=== PATIENT | female | born 1990 | race Caucasian/White ===

== ENCOUNTER → 2016-07-20 | Outpatient (CLI) | payer OTHER ==
[2016-07-20 12:54] LABS: BASO % 0.6 % (0.0-1.0); EOS # 0.1 K/mm3 (0.0-0.50); EOS % 1.6 % (0.0-3.0); LARGE UNSTAINED CELL # 0.1 K/mm3 (0.0-0.4); LARGE UNSTAINED CELL % 1.7 % (0.0-4.0); LYMPH % 34.9 % (24.0-44.0); MEAN CORPUSCULAR HEMOGLOBIN 29.2 pg (27.0-33.0); MEAN CORPUSCULAR HGB CONC 32.9 g/dl (32.0-36.5); MEAN CORPUSCULAR VOLUME 88.7 fl (80.0-96.0); MONO # 0.4 K/mm3 (0.0-0.8); MONO % 7.6 % (0.0-5.0); NEUTROPHILS # 2.9 K/mm3 (1.8-7.7); NEUTROPHILS % 53.6 % (36.0-66.0); PLATELET COUNT, AUTOMATED 309 k/mm3 (150-450); RED CELL DISTRIBUTION WIDTH 11.9 % (11.5-14.5); WHITE BLOOD COUNT 5.5 K/mm3 (4.0-10.0)
[2016-07-20 13:19] LABS: HBsAg Prenatal NEGATIVE (NEGATIVE)
[2016-07-20 14:46] LABS: CONTROL LINE INT CTR LINE PRESENT; HIV SCRN NEGATIVE (NEGATIVE); HIV SCRN1 NEGATIVE (NEGATIVE)
== END ==
LOC: M WUC 07-19 12:30
PROVIDERS: ATTEND Advanced Practice Midwife
DX: Z34.81 Encounter for supervision of other normal pregnancy, first trimester (principal); Z36 Encounter for antenatal screening of mother; Z3A.00 Weeks of gestation of pregnancy not specified

== ENCOUNTER → 2016-11-07 | Outpatient (CLI) | payer OTHER ==
--- NOTE | 2016-11-07 16:27 | REP ---
Clinical: Anatomical evaluation. Comparison: None . Findings: Examination demonstrates a single live intrauterine in breech presentation. motion is identified by technologist. Placenta is noted anteriorly and grade zero without evidence for placenta previa or abruption. Amniotic fluid volume is normal. Cervix measures 4.4 cm in length and appears closed. No evidence for nuchal cord. Gestational age by LMP 20 weeks 4 days with DESMOND 03/23/2017 . Gestational age by current measurements 20 weeks 2 days with DESMOND 03/25/2017 . FHR equals 157 beats per minute. BPD 5.0 cm 21 weeks 0 days HC 17.6 cm 20 weeks 1 day AC 15.2 cm 20 weeks 3 days FL 3.4 cm 20 weeks 5 days HL 3.2 cm 20 weeks 6 days HC/AC ratio 1.16 Estimated weight 360 grams ( 44th percentile). Anatomical assessment demonstrates normal structures including cranium, choroid plexus, cavum, cerebellum/posterior fossa, facial features, lungs, four-chamber heart, diaphragm, stomach, cord insertion/three-vessel cord, kidneys/bladder, and extremities. Limited evaluation of the facial profile, cardiac ventricular outflow tracts and spine noted. Impression: Single live intrauterine in breech presentation demonstrating appropriate interval growth. Anatomical limitations as described above may warrant reevaluation and follow-up. Signed by Oswald Sandoval MD 11/07/2016 04:18 P
== END ==
LOC: M SMT 14:46
PROVIDERS: ATTEND Advanced Practice Midwife
DX: O32.1XX0 Maternal care for breech presentation, not applicable or unspecified (principal); Z36 Encounter for antenatal screening of mother; Z3A.20 20 weeks gestation of pregnancy

== ENCOUNTER → 2016-12-08 | Outpatient (CLI) | payer MEDICAID, OTHER ==
--- NOTE | 2016-12-09 03:40 | REP ---
Clinical: Anatomical re-evaluation. Comparison: 11/07/2016 . Findings: Examination demonstrates a single live intrauterine in cephalic presentation. motion is identified by technologist. Placenta is noted posteriorly and grade zero without evidence for placenta previa or abruption. Amniotic fluid volume is normal. Cervix measures 3.4 cm in length and appears closed. No evidence for nuchal cord. Gestational age by LMP 25 weeks 0 days with DESMOND 03/23/2017 . Gestational age by current measurements 25 weeks 1 day with DESMOND 03/22/2017 . FHR equals 144 beats per minute. Estimated weight 781 grams ( 49th percentile). Anatomical assessment demonstrates normal structures including cranium, choroid plexus, cavum, cerebellum/posterior fossa, facial features, lungs, four-chamber heart/ventricular outflow tracts, diaphragm, stomach, cord insertion/three-vessel cord, kidneys/bladder, spine, and extremities. Impression: Single live intrauterine in cephalic presentation demonstrating appropriate interval growth. Anatomical assessment is complete and normal. No gross abnormalities are identified. Signed by Oswald Sandoval MD 12/09/2016 03:32 A
== END ==
LOC: M SMT 08:49
PROVIDERS: ATTEND Obstetrics & Gynecology
DX: Z34.82 Encounter for supervision of other normal pregnancy, second trimester (principal); Z36 Encounter for antenatal screening of mother; Z3A.25 25 weeks gestation of pregnancy

== ENCOUNTER → 2016-12-27 | Outpatient (CLI) | payer OTHER ==
[~2016-12-27] MED LIST: ACET50TA PO; IBUP-1114 PO; PRENTAB9 PO
[2016-12-27 16:59] LABS: BASO % 0.2 % (0.0-1.0); EOS # 0.1 K/mm3 (0.0-0.50); EOS % 1.2 % (0.0-3.0); LARGE UNSTAINED CELL # 0.2 K/mm3 (0.0-0.4); LARGE UNSTAINED CELL % 1.4 % (0.0-4.0); LYMPH # 1.8 K/mm3 (1.5-6.5); LYMPH % 15.1 % (24.0-44.0); MEAN CORPUSCULAR HEMOGLOBIN 30.3 pg (27.0-33.0); MEAN CORPUSCULAR HGB CONC 34.1 g/dl (32.0-36.5); MEAN CORPUSCULAR VOLUME 88.9 fl (80.0-96.0); MONO # 0.5 K/mm3 (0.0-0.8); MONO % 4.9 % (0.0-5.0); NEUTROPHILS # 8.4 K/mm3 (1.8-7.7); NEUTROPHILS % 77.2 % (36.0-66.0); PLATELET COUNT, AUTOMATED 304 k/mm3 (150-450); RED CELL DISTRIBUTION WIDTH 12.9 % (11.5-14.5); WHITE BLOOD COUNT 10.9 K/mm3 (4.0-10.0)
== END ==
LOC: M WUC 14:12
PROVIDERS: ATTEND Specialist
DX: Z34.82 Encounter for supervision of other normal pregnancy, second trimester (principal); Z36 Encounter for antenatal screening of mother; Z3A.00 Weeks of gestation of pregnancy not specified
CPT/HCPCS: 36415; 82950; 85025; 86850; 86900; 86901; J2790

== ENCOUNTER → 2017-03-02 | Outpatient (REF) | payer OTHER, MEDICAID | LOC: M LAB REF 12:59 | PROVIDERS: ATTEND Advanced Practice Midwife | DX: Z34.83 Encounter for supervision of other normal pregnancy, third trimester (principal); Z3A.00 Weeks of gestation of pregnancy not specified ==

== ENCOUNTER 2017-03-22 17:13 | Inpatient (IN) | payer OTHER, MEDICAID ==
[~2017-03-22] VITALS: Ht 172.7 cm; Wt 103.2 kg
[2017-03-22] VITALS (13 sets, daily range): BP systolic 116–137; BP diastolic 55–83
[2017-03-22] MEDS ORDERED: OXYTOCIN DRIP 30 UNITS in APPROPRIATE DILUENT 1 EA IV SCH (17:45)
[2017-03-22 18:54] LABS: MEAN CORPUSCULAR HEMOGLOBIN 30.2 pg (27.0-33.0); MEAN CORPUSCULAR HGB CONC 34.7 g/dl (32.0-36.5); PLATELET COUNT, AUTOMATED 279 10^3/uL (150-450); RED CELL DISTRIBUTION WIDTH 12.3 % (11.5-14.5); WHITE BLOOD COUNT 12.3 10^3/uL (4.0-10.0)
[2017-03-22] MEDS: LR 1,000 ML IV SCH (19:39)
[2017-03-23] VITALS (49 sets, daily range): BP systolic 94–145; BP diastolic 53–99
--- NOTE | 2017-03-23 01:28 | HPE ---
DATE OF ADMISSION: 03/22/2017 REASON FOR ADMISSION: Rupture of membranes. HISTORY OF PRESENT ILLNESS: Ms. Sumner is a 26-year-old 2, para 1, who presents at 39 weeks 6 days estimated gestational age by her last menstrual period confirmed by a first trimester ultrasound with complaints of leakage of fluid. She reports approximately at 3:30 p.m. she had large gush of clear fluid, which has since continued. She reports active movement. Denies any vaginal bleeding. Does report irregular contractions. Her course has been unremarkable. She initiated care in her first trimester and has been appropriate throughout. PAST MEDICAL HISTORY: None. PAST SURGICAL HISTORY: None. PAST OBSTETRICAL HISTORY: She is a 2, para 1. She has had one term vaginal delivery. She has proven to 7 pounds 14 ounces. MEDICATIONS: Include vitamins. ALLERGIES: She has no known drug allergies. SOCIAL HISTORY: She denies any alcohol, tobacco, or drug use during her . PHYSICAL EXAMINATION: VITAL SIGNS: Stable. She is afebrile. She has a category 1 heart rate tracing with irregular contractions on tachometer. GENERAL APPEARANCE: Well appearing, no acute distress. LUNGS: Clear to auscultation bilaterally. CARDIOVASCULAR: Heart is regular rate and rhythm. ABDOMEN: Gravid, nontender to palpation. Estimated weight (EFW) 3400 grams. CERVICAL EXAM: She is 1 cm dilated, 50% effaced, -2 station, grossly ruptured. LABORATORIES: Her blood type is B negative. Antibody screen is negative. Rubella is immune. RPR is nonreactive. Hepatitis surface antigen is negative. HIV is negative. Hepatitis C is nonreactive. Chlamydia and gonorrhea screens are negative. She had a normal 1-hour Glucola. She is group B Streptococcus (GBS) negative. ASSESSMENT: 1. Ms. Sumner is a 26-year-old 2, para 1, who presents at 39 weeks 6 days estimated gestational age with spontaneous rupture of membranes. 2. Reassuring status. PLAN: 1. Admit to labor and delivery. Complete blood count (CBC), RPR, type and screen, urine toxicology screen. 2. I thoroughly counseled patient in regards to labor augmentation with Pitocin, as well as other procedures and medication used in labor and delivery. She has verbally been consented for emergency surgery, blood products, anesthesia, and desires to proceed with admission. 3. Patient is a good candidate for epidural. 4. Anticipate spontaneous vaginal delivery.
--- NOTE | 2017-03-23 08:34 | IPNPDOC ---
Text Note Date of Service The patient was seen on 03/23/17. NOTE S: Patient doing well resting in bed, family at bedside. Coping well with contractions O: Vital signs stable FHR 150, moderate variability, + accels, + early decels CTX: 2-6 mins, lasting 60 sec, mild to palpate A: 40 wk gestation, category 1 tracing P: Will resume augmentation at 0900 after reassessment. Anticipate VS,Fishbone, I+O VS, Fishbone, I+O Laboratory Tests 03/22/17 18:36 Red Blood Count 4.47, Mean Corpuscular Volume 87.0, Mean Corpuscular Hemoglobin 30.2, Mean Corpuscular Hemoglobin Concent 34.7, Red Cell Distribution Width 12.3 Vital Signs Date Time Temp Pulse Resp B/P (MAP) Pulse Ox O2 Delivery O2 Flow Rate FiO2 03/23/17 07:30 17 03/23/17 07:12 119/62 (81) 03/22/17 21:43 17 03/22/17 17:49 98 Room Air Shira Brownlee CNM Mar 23, 2017 08:34
--- NOTE | 2017-03-23 09:37 | IPNPDOC ---
Text Note Date of Service The patient was seen on 03/23/17. NOTE S: Patient doing well. Ambulating around the floor. Able to tolerate pain. O: Vital signs stable FHR: 150, moderate variability, + accels, CTX: 2-4 mins, lasting 45-60 sec, mild to palpate SVE: 4cm, 70%, -1 P: Restart Pitocin at 2mu, will reassess in a few hours, Patient plans for an epidural. VS,Fishbone, I+O VS, Fishbone, I+O Laboratory Tests 03/22/17 18:36 Red Blood Count 4.47, Mean Corpuscular Volume 87.0, Mean Corpuscular Hemoglobin 30.2, Mean Corpuscular Hemoglobin Concent 34.7, Red Cell Distribution Width 12.3 Vital Signs Date Time Temp Pulse Resp B/P (MAP) Pulse Ox O2 Delivery O2 Flow Rate FiO2 03/23/17 09:21 76 135/67 (89) 03/22/17 21:43 17 03/22/17 17:49 98 Room Air Shria Brownlee CNM Mar 23, 2017 09:37
[2017-03-23] MEDS ORDERED: FENTANYL 2MCG/ML ROPIVACAINE 0.2% IN 0.9% NACL 200ML IVBAG As Ordered ONE (10:42)
[2017-03-23] MEDS ORDERED: ePHEDrine SULFATE 25 MG/5 ML(5MG/ML) SYRINGE IV PRN (11:45)
[2017-03-23] MEDS ORDERED: EPIDURAL/PCA KEYS XX PRN (11:45)
[2017-03-23] MEDS ORDERED: ONDANSETRON 4MG/2ML VIAL (J2405) IV PRN (11:45)
[2017-03-23] MEDS ORDERED: REFRIGERATOR IV KEYS XX PRN (11:45)
[2017-03-23] MEDS ORDERED: diphenhydrAMINE INJ 50MG/ML VIAL (J1200) IV PRN (11:45)
[2017-03-23] MEDS ORDERED: NALOXONE INJ 0.4 MG/1 ML VIAL (J2310) IV PRN (11:45)
[2017-03-23] MEDS ORDERED: LACTATED RINGER'S 1000 ML IV PRN (11:45)
[2017-03-23] MEDS ORDERED: EPIDURAL COMMENT XX SCH (11:45)
[2017-03-23] MEDS ORDERED: FENTANYL/ROPIVACAINE/NACL BAG 200 ML EPIDURAL SCH (11:45)
[2017-03-23] MEDS: LR 1,000 ML IV SCH (11:52)
--- NOTE | 2017-03-23 13:26 | IPNPDOC ---
Text Note Date of Service The patient was seen on 03/23/17. NOTE S: Patient resting comfortably post epidural with some pressure with a contraction. O: vital signs stable CTX:2-4 mins lasting 60-70secs FHR:150, minimal to moderate variability with occasional late decelerations and early variables. SVE: 8-9, 100/0 bloody show A: 40 week gestation in active labor. category 2 tracing P: Notified collaborating physician of patient's status and tracing, anticipate shortly. VS,Fishbone, I+O VS, Fishbone, I+O Laboratory Tests 03/22/17 18:36 Red Blood Count 4.47, Mean Corpuscular Volume 87.0, Mean Corpuscular Hemoglobin 30.2, Mean Corpuscular Hemoglobin Concent 34.7, Red Cell Distribution Width 12.3 Vital Signs Date Time Temp Pulse Resp B/P (MAP) Pulse Ox O2 Delivery O2 Flow Rate FiO2 03/23/17 12:58 66 119/67 (84) 03/23/17 11:41 99.0 17 03/22/17 17:49 98 Room Air I&O- Last 24 Hours up to 6 AM 03/24/17 06:00 Intake Total 2000 ml Output Total 300 ml Balance 1700 ml Shira Brownlee CNM Mar 23, 2017 13:26
[2017-03-23 16:06] LABS: CORD GAS ABE V -1.3; CORD GAS HCO3 V 24.7 MEQ/L; CORD GAS O2 SAT V 76.3 %; CORD GAS PCO2 V 45.5 mmHg; CORD GAS PH V 7.352 UNITS; CORD GAS PO2 V 32.7 mmHg; CORD GAS SBC V 22.8 MEQ/L; CORD GAS TCO2 V 26.1 MEQ/L
[2017-03-23 16:08] LABS: CORD GAS HCO3 A 16.8 MEQ/L; CORD GAS O2 SAT A 66.4 %; CORD GAS PCO2 A 33.1 mmHg; CORD GAS PH A 7.324 UNITS; CORD GAS PO2 A 32.3 mmHg; CORD GAS SBC A 17.4 MEQ/L; CORD GAS TCO2 A 17.8 MEQ/L
[2017-03-23] MEDS ORDERED: DOCUSATE SODIUM 100 MG CAP PO PRN (16:45)
[2017-03-23] MEDS ORDERED: MEASLES,MUMPS,RUBELLA VACCINE INJ (MMR-II) (90707) SC SCH (16:45)
[2017-03-23] MEDS ORDERED: DIBUCAINE 1% OINTMENT 30GM TOP PRN (16:45)
[2017-03-23] MEDS ORDERED: ANUSOL HC CREAM 30GM TOP PRN (16:45)
[2017-03-23] MEDS ORDERED: RHOGAM 300 MCG (1500 IU) INJ (J2790) IM SCH (16:45)
[2017-03-23] MEDS ORDERED: MOM 30ML SUSPENSION UDC PO PRN (16:45)
--- NOTE | 2017-03-23 16:54 | DNPDOC ---
[facility] Delivery Note Delivery Note DATE OF DELIVERY: 03/23/2017 PREDELIVERY DIAGNOSIS: 40 0/7 weeks' gestation and PROM. POST DELIVERY DIAGNOSIS: Delivered. PROCEDURE: Spontaneous vaginal delivery. PROVIDER: Rita BOOGIE and Anat Brownlee CNM ANESTHESIA: epidural. ESTIMATED BLOOD LOSS: 500 mL. FINDINGS: 8 pound 0 ounce female , Score 8/8, compound presentation DELIVERY SUMMARY: Patient is a 26-year-old 2 now para 2002 who was admitted to labor and delivery for SROM 03/22/17 @ 1545 with clear fluid. Patient was augmented with IV Pitocin throughout the night. Iv Pitocin was stopped on 03/23/2017 at 0742 and was restarted at 0916. Patient utilized an epidural for labor coping. Fully dilated at 1509, delivered a viable female OA that restituted to LOT with a compound presentation of the right anterior elbow assisted with gentle downward traction. Placenta gregoria, intact with a three vessel cord delivered at 1542. EBL 500ml. Fundus was firm with massage and IV Pitocin bolus with great hemostasis. Perineum, cervix and vagina inspected. Second degree laceration of the posterior vaginal wall that extended to the right sulcus repaired with a 3-0 vicryl rapide with excellent hemostasis. Bilateral labia lacerations were noted, repair to the right labial with two interrupted stitches. Infant weighed 8lb 0oz/3630 grams. Apgars 8/8. The parents are naming their daughter Madhu. Sharps, instruments and sponges were counted and verified. attended by Rita BOOGIE and Anat Koehler CNM. Shira Brownlee CNM Mar 23, 2017 16:54
[2017-03-23] MEDS: METHYLERGONOVINE MALEATE 0.2 MG TAB PO SCH ×2 (17:02→23:09)
[2017-03-23] MEDS: IBUPROFEN 800 MG TAB PO PRN (18:42)
[2017-03-23] MEDS: ACETAMINOPHEN 500 MG TAB PO PRN (22:00)
[2017-03-24] MEDS: IBUPROFEN 800 MG TAB PO PRN ×4 (01:10→22:49)
[2017-03-24] MEDS: METHYLERGONOVINE MALEATE 0.2 MG TAB PO SCH ×4 (05:52→22:48)
[2017-03-24] MEDS: ACETAMINOPHEN 500 MG TAB PO PRN ×2 (05:53→19:32)
[2017-03-24 06:00] VITALS: BP 116/62
[2017-03-24] MEDS: PRENATAL VITAMINS CHEWABLE TABLET PO SCH (07:38)
[2017-03-24 17:43] VITALS: BP 129/68
[2017-03-25] MEDS: METHYLERGONOVINE MALEATE 0.2 MG TAB PO SCH (04:45)
[2017-03-25] MEDS: IBUPROFEN 800 MG TAB PO PRN ×2 (05:00→11:11)
[2017-03-25 06:35] VITALS: BP 93/46
[2017-03-25] MEDS: PRENATAL VITAMINS CHEWABLE TABLET PO SCH (08:08)
[2017-03-25] MEDS ORDERED: IBUP-1114 PO (09:10)
[2017-03-25] MEDS ORDERED: PRENTAB9 PO (09:10)
[2017-03-25] MEDS ORDERED: ACET50TA PO (09:10)
== END 2017-03-25 11:20 | disposition home or self-care (01) | DRG 560 ==
LOC: M LDO 17:13 → M LDI 17:38 → M OBS 03-23 17:40
PROVIDERS: ADMIT Obstetrics & Gynecology; ATTEND Advanced Practice Midwife
PROC: 10E0XZZ Delivery of Products of Conception, External Approach (ICD-10-PCS; principal; 2017-03-22)
PROC: 0KQM0ZZ Repair Perineum Muscle, Open Approach (ICD-10-PCS; 2017-03-22)
PROC: 0HQ9XZZ Repair Perineum Skin, External Approach (ICD-10-PCS; 2017-03-22)
DX: O42.02 Full-term premature rupture of membranes, onset of labor within 24 hours of rupture (principal); O32.6XX0 Maternal care for compound presentation, not applicable or unspecified; Z3A.39 39 weeks gestation of pregnancy; O70.1 Second degree perineal laceration during delivery; O70.0 First degree perineal laceration during delivery; Z37.0 Single live birth

== ENCOUNTER 2017-05-08 17:24 | Emergency (ER) | payer OTHER ==
[2017-05-08 18:42] LABS: BASO % 0.4 % (0.0-1.0); EOS # 0.3 10^3/uL (0.0-0.50); EOS % 2.6 % (0.0-3.0); IMMATURE GRANULOCYTE % 0.3 % (0-0); LYMPH # 2.5 10^3/uL (1.5-6.5); LYMPH % 25.4 % (24.0-44.0); MEAN CORPUSCULAR HEMOGLOBIN 28.1 pg (27.0-33.0); MEAN CORPUSCULAR HGB CONC 32.7 g/dl (32.0-36.5); MONO # 0.7 10^3/uL (0.0-0.8); MONO % 7.1 % (0.0-5.0); NEUTROPHILS # 6.4 10^3/uL (1.8-7.7); NEUTROPHILS % 64.2 % (36.0-66.0); PLATELET COUNT, AUTOMATED 441 10^3/uL (150-450); RED CELL DISTRIBUTION WIDTH 11.7 % (11.5-14.5)
[2017-05-08 18:47] LABS: KETONE, URINE AUTO RFX NEGATIVE (NEGATIVE); NITRITE, URINE AUTO RFX NEGATIVE (NEGATIVE); RBC, URINE AUTO RFX 2 /HPF (0-3); SPECIFIC GRAVITY UR AUTO RFX 1.015 (1.002-1.035); SQUAM EPITHELIAL CELL UR AURFX 1 /HPF (0-6)
[2017-05-08 18:48] LABS: LEUKOCYTE ESTERASE UR AUTO RFX 3+ (NEGATIVE); WBC, URINE AUTO RFX 15 /HPF (0-3)
[2017-05-08 18:53] LABS: ALBUMIN 3.7 GM/DL (3.2-5.2); ALBUMIN/GLOBULIN RATIO 0.84 (1.00-1.93); ALKALINE PHOSPHATASE 82 U/L (45-117); ALT/SGPT 15 U/L (12-78); ANION GAP 7 MEQ/L (8-16); AST/SGOT 13 U/L (7-37); BILIRUBIN,DIRECT < 0.1 MG/DL (0.0-0.2); BILIRUBIN,TOTAL 0.3 MG/DL (0.2-1.0); BLOOD UREA NITROGEN 13 MG/DL (7-18); CALCIUM LEVEL 9.1 MG/DL (8.5-10.1); CARBON DIOXIDE LEVEL 26 MEQ/L (21-32); CHLORIDE LEVEL 108 MEQ/L (98-107); CREATININE FOR GFR 0.72 MG/DL (0.55-1.02); GLOMERULAR FILTRATION RATE > 60.0 (>60); GLUCOSE, FASTING 82 MG/DL (70-105); POTASSIUM SERUM 3.5 MEQ/L (3.5-5.1); SODIUM LEVEL 141 MEQ/L (136-145); TOTAL PROTEIN 8.1 GM/DL (6.4-8.2)
[2017-05-08] MEDS: NITROFURANTOIN (MACROBID) 100 MG CAP PO (19:23)
== END 2017-05-08 19:25 | disposition home or self-care (01) ==
LOC: M ED 17:24
DX: S93.401A Sprain of unspecified ligament of right ankle, initial encounter (principal); X58.XXXA Exposure to other specified factors, initial encounter; Y92.009 Unspecified place in unspecified non-institutional (private) residence as the place of occurrence of the external cause; Y93.89 Activity, other specified; Y99.8 Other external cause status; E11.9 Type 2 diabetes mellitus without complications; I25.10 Atherosclerotic heart disease of native coronary artery without angina pectoris; I50.9 Heart failure, unspecified; I13.0 Hypertensive heart and chronic kidney disease with heart failure and stage 1 through stage 4 chronic kidney disease, or unspecified chronic kidney disease; N18.9 Chronic kidney disease, unspecified; E78.70 Disorder of bile acid and cholesterol metabolism, unspecified; E07.9 Disorder of thyroid, unspecified; Z79.899 Other long term (current) drug therapy; Z88.8 Allergy status to other drugs, medicaments and biological substances; Z88.2 Allergy status to sulfonamides; Z91.041 Radiographic dye allergy status; Z95.5 Presence of coronary angioplasty implant and graft; Z85.038 Personal history of other malignant neoplasm of large intestine
CPT/HCPCS: 76705

== ENCOUNTER → 2017-06-29 | Outpatient (REF) | payer OTHER ==
[2017-06-29 14:34] LABS: CHLAMYDIA DNA AMPLIFICATION POSITIVE (NEGATIVE); GC DNA AMPLIFICATION NEGATIVE (NEGATIVE)
== END ==
LOC: M LAB REF 12:55
DX: Z11.3 Encounter for screening for infections with a predominantly sexual mode of transmission (principal)
CPT/HCPCS: 87591

== ENCOUNTER 2017-09-01 16:07 | Emergency (ER) | payer OTHER ==
[2017-09-01] MEDS: NS 1,000 ML IV ×2 (17:15)
[2017-09-01] MEDS: ONDANSETRON 4MG/2ML VIAL (J2405) IV ×2 (17:15)
== END 2017-09-01 19:06 | disposition home or self-care (01) ==
LOC: M ED 16:07
DX: A08.4 Viral intestinal infection, unspecified (principal); E86.0 Dehydration; Z79.899 Other long term (current) drug therapy
CPT/HCPCS: J2405

== ENCOUNTER → 2018-05-04 | Outpatient (CLI) | payer OTHER ==
[~2018-05-04] MED LIST changes: -ACET50TA PO; +MAPA500T2 PO; +NITR100C2 PO; +ZOFR4TAB14 PO
[2018-05-04 13:24] LABS: FREE THYROXINE INDEX 3.8 % (1.3-4.8); THYROID STIMULATING HORMONE 0.714 uIU/ML (0.358-3.740); THYROXINE (T4) 10.6 UG/DL (4.5-12.0)
[2018-05-05 14:10] LABS: SSA SJOGRENS A <0.2 AI (0.0-0.9); SSB SJOGRENS B <0.2 AI (0.0-0.9)
== END ==
LOC: M WUC 09:40
PROVIDERS: ATTEND Optometrist
DX: H05.20 Unspecified exophthalmos (principal); M35.00 Sjogren syndrome, unspecified

== ENCOUNTER → 2018-09-25 | Outpatient (REF) | payer OTHER, MEDICAID ==
[2018-09-25 15:37] LABS: CHLAMYDIA DNA AMPLIFICATION NEGATIVE (NEGATIVE); GC DNA AMPLIFICATION NEGATIVE (NEGATIVE)
== END ==
LOC: M LAB REF 13:04
PROVIDERS: ATTEND Advanced Practice Midwife
DX: Z11.3 Encounter for screening for infections with a predominantly sexual mode of transmission (principal)

== ENCOUNTER → 2018-10-10 | Outpatient (CLI) | payer OTHER ==
--- NOTE | 2018-10-10 12:53 | REP ---
PELVIC ULTRASOUND: Real-time sonographic evaluation of pelvis performed utilizing transabdominal and endovaginal technique. Bladder measures 8.6 x 3.6 x 9.1 cm. Uterus measures 9.0 x 4.3 x 5.4 cm. The endometrial thickness is 7 mm. IUD is seen in the lower uterine segment. Right ovary measures 3.5 x 2.0 x 2.2 cm and left ovary 3.4 x 2.6 x 2.9 cm. There is a complex dominant follicle left ovary 1.7 x 1.4 x 1.3 cm. There is no ovarian torsion, blood flow seen in each ovary with duplex Doppler evaluation, RI right ovary 0.62 and left ovary 0.46. There is no evidence of adnexal mass or free fluid. IMPRESSION: IUD in lower uterine segment. Complex dominant follicle left ovary 1.7 cm maximally. No torsion or free fluid. Electronically Signed by Michael Flores MD 10/10/2018 02:15 P
== END ==
LOC: M RAD 11:04
PROVIDERS: ATTEND Advanced Practice Midwife
DX: N83.02 Follicular cyst of left ovary (principal); Z97.5 Presence of (intrauterine) contraceptive device

== ENCOUNTER → 2019-02-21 | Outpatient (REF) | payer OTHER | LOC: M LABDRAW1 15:48 | PROVIDERS: ATTEND Advanced Practice Midwife | DX: N91.2 Amenorrhea, unspecified (principal) ==

== ENCOUNTER → 2019-02-22 | Outpatient (CLI) | payer OTHER | LOC: M SMT 11:07 | PROVIDERS: ATTEND Advanced Practice Midwife | DX: N91.2 Amenorrhea, unspecified (principal) ==

== ENCOUNTER → 2019-02-26 | Outpatient (CLI) | payer OTHER | LOC: M SMT 09:45 | PROVIDERS: ATTEND Advanced Practice Midwife | DX: N91.1 Secondary amenorrhea (principal) ==

== ENCOUNTER → 2019-03-01 | Outpatient (CLI) | payer OTHER | LOC: M SMT 15:09 | PROVIDERS: ATTEND Advanced Practice Midwife | DX: N91.1 Secondary amenorrhea (principal) ==

== ENCOUNTER → 2019-03-07 | Outpatient (CLI) | payer OTHER ==
--- NOTE | 2019-03-12 14:20 | REP ---
Clinical: Evaluate for intrauterine device. Technique: Transabdominal and transvaginal ultrasound examination with color Doppler evaluation. Findings: Anteverted uterus demonstrates early intrauterine with CRL of 7 mm corresponding to 6 weeks 3 days gestational age. Estimated date of delivery at 10/28/2019. heart rate equals 118 beats per minute. IUD is identified inferior/right lateral to the gestational sac and appears to be partially imbedded into the myometrium with a small surrounding area of complex echogenicity measuring 38 x 27 x 27 mm which may represent small focal hemorrhage. Bilateral ovaries are normal in appearance and vascularity. Left ovary measures 2.0 by a 1.7 x 1.8 cm; RI 0.44. Right ovary measures 2.0 x 1.7 x 1.8 cm; RI 0.50. No significant pelvic free fluid. Impression: 1. IUD identified partially imbedded into the myometrium with surrounding heterogeneous echogenicity possibly representing chronic change or small focal hemorrhage. 2. Normal early intrauterine at 6 weeks 3 days gestational age. Complete anatomical assessment should be performed at 19-20 weeks. Electronically Signed by Oswald Sandoval MD 03/12/2019 02:12 P
== END ==
LOC: M RAD 14:57
PROVIDERS: ATTEND Advanced Practice Midwife
DX: N91.1 Secondary amenorrhea (principal); Z30.431 Encounter for routine checking of intrauterine contraceptive device

== ENCOUNTER → 2019-04-02 | Outpatient (CLI) | payer OTHER ==
[2019-04-02 20:10] LABS: BASO % 0.4 % (0.0-1.0); EOS # 0.2 10^3/uL (0.0-0.5); EOS % 1.8 % (0.0-3.0); HEMATOCRIT 43.5 % (36.0-47.0); HEMOGLOBIN 13.9 g/dl (12.0-15.5); LYMPH # 2.3 10^3/uL (1.5-5.0); MEAN CORPUSCULAR HEMOGLOBIN 28.8 pg (27.0-33.0); MEAN CORPUSCULAR VOLUME 90.1 fl (80.0-96.0); MONO # 0.7 10^3/uL (0.0-0.8); MONO % 7.1 % (0.0-5.0); NEUTROPHILS # 6.3 10^3/uL (1.5-8.5); NEUTROPHILS % 66.4 % (36.0-66.0); PLATELET COUNT, AUTOMATED 279 10^3/uL (150-450); RED BLOOD COUNT 4.83 10^6/uL (4.00-5.40); WHITE BLOOD COUNT 9.4 10^3/uL (4.0-10.0)
[2019-04-02 20:25] LABS: HEMOGLOBIN A1c 5.1 %
[2019-04-02 21:38] LABS: CHLAMYDIA DNA AMPLIFICATION NEGATIVE (NEGATIVE); GC DNA AMPLIFICATION NEGATIVE (NEGATIVE)
[2019-04-03 10:05] LABS: HIV 1&2 SCREEN CENTAUR NEGATIVE (NEGATIVE); RUBELLA IgG QUALITATIVE IMMUNE (IMMUNE)
== END ==
LOC: M SMT 15:32
PROVIDERS: ATTEND Advanced Practice Midwife
DX: Z3A.10 10 weeks gestation of pregnancy (principal)

== ENCOUNTER → 2019-06-18 | Outpatient (CLI) | payer OTHER ==
--- NOTE | 2019-06-19 05:38 | REP ---
Clinical: Anatomical evaluation. Comparison: 05/31/2019 . Findings: Examination demonstrates a single live intrauterine in transverse (head to maternal right) presentation. motion is identified by technologist. Placenta is noted left lateral and grade I without evidence for placenta previa or abruption. Amniotic fluid volume is normal. Cervix measures 4.2 cm in length and appears closed. No evidence for nuchal cord. IUD is identified along the left lateral uterus imbedded within the uterine myometrium. Gestational age by first US 21 weeks 1 day with DESMOND 10/28/2019 Gestational age by current measurements 21 weeks 0 days with DESMOND 10/29/2019 . FHR equals 143 beats per minute. Estimated weight 417 grams ( 51st percentile). Anatomical assessment demonstrates normal structures including cranium, facial features, lungs, four-chamber heart/ventricular outflow tracts, diaphragm, stomach, cord insertion/three-vessel cord, kidneys/bladder, and spine. Impression: 1. Single live intrauterine in transverse lie demonstrating appropriate estimated weight and growth interval. 2. IUD identified imbedded in the left side of the uterine myometrium. 3. In conjunction with prior examination anatomical assessment is complete and normal.
== END ==
LOC: M WHC 08:59
PROVIDERS: ATTEND Advanced Practice Midwife
DX: Z34.82 Encounter for supervision of other normal pregnancy, second trimester (principal)

== ENCOUNTER → 2019-07-31 | Outpatient (REF) | payer OTHER ==
[2019-07-31 13:41] LABS: HEMATOCRIT 38.9 % (36.0-47.0); HEMOGLOBIN 13.2 g/dl (12.0-15.5); MEAN CORPUSCULAR HEMOGLOBIN 30.7 pg (27.0-33.0); MEAN CORPUSCULAR HGB CONC 33.9 g/dl (32.0-36.5); MEAN CORPUSCULAR VOLUME 90.5 fl (80.0-96.0); PLATELET COUNT, AUTOMATED 285 10^3/uL (150-450); WHITE BLOOD COUNT 8.9 10^3/uL (4.0-10.0)
== END ==
LOC: M PLALAB 08:39
PROVIDERS: ATTEND Advanced Practice Midwife
DX: O26.32 Retained intrauterine contraceptive device in pregnancy, second trimester (principal)
CPT/HCPCS: 82950; 85027; 86850; 86901; J2790

== ENCOUNTER → 2019-10-01 | Outpatient (REF) | payer OTHER ==
[~2019-10-01] MED LIST changes: +IBUP80TA PO
== END ==
LOC: M SFHCWAGY 17:13
PROVIDERS: ATTEND Advanced Practice Midwife
DX: O26.30 Retained intrauterine contraceptive device in pregnancy, unspecified trimester (principal)

== ENCOUNTER 2019-10-27 02:20 | Inpatient (IN) | payer OTHER ==
[~2019-10-27] VITALS: Ht 172.7 cm; Wt 98.5 kg
[~2019-10-27 02:20] MED LIST changes: -IBUP80TA PO
[2019-10-27 02:37] VITALS: BP 122/76
[2019-10-27 05:40] VITALS: BP 124/72
[2019-10-27] MEDS ORDERED: LR 1,000 ML IV SCH ×2 (05:41→08:30)
[2019-10-27] MEDS ORDERED: LACTATED RINGER'S 1000 ML IV STA (05:41)
[2019-10-27] MEDS ORDERED: OXYTOCIN DRIP 30 UNITS in IV 1 EA IV SCH ×2 (05:45→08:15)
[2019-10-27 06:45] LABS: HEMATOCRIT 41.2 % (36.0-47.0); HEMOGLOBIN 13.9 g/dl (12.0-15.5); MEAN CORPUSCULAR HEMOGLOBIN 29.8 pg (27.0-33.0); MEAN CORPUSCULAR HGB CONC 33.7 g/dl (32.0-36.5); MEAN CORPUSCULAR VOLUME 88.4 fl (80.0-96.0); PLATELET COUNT, AUTOMATED 267 10^3/uL (150-450); RED BLOOD COUNT 4.66 10^6/uL (4.00-5.40); WHITE BLOOD COUNT 14.1 10^3/uL (4.0-10.0)
[2019-10-27] MEDS ORDERED: FENTANYL 2MCG/ML ROPIVACAINE 0.2% IN 0.9% NACL 100ML IVBAG As Ordered ONE (07:12)
[2019-10-27] MEDS ORDERED: PROMETHAZINE 25 MG TAB PO PRN (08:00)
[2019-10-27] MEDS ORDERED: ACETAMINOPHEN 500 MG TAB PO PRN (08:00)
[2019-10-27] MEDS ORDERED: MEASLES,MUMPS,RUBELLA VACCINE INJ (MMR-II) (90707) SC SCH (08:00)
[2019-10-27] MEDS ORDERED: IBUPROFEN 600MG TAB PO PRN (08:00)
[2019-10-27] MEDS ORDERED: DOCUSATE SODIUM 100 MG CAP PO PRN (08:00)
[2019-10-27] MEDS ORDERED: ACETAMINOPHEN TAB 650MG DOSE (2X325MG) PO PRN (08:00)
[2019-10-27] MEDS ORDERED: RHOGAM 300 MCG (1500 IU) INJ (J2790) IM SCH (08:00)
[2019-10-27] MEDS ORDERED: ONDANSETRON 4MG/2ML VIAL IV PRN (08:00)
[2019-10-27] MEDS ORDERED: METHYLERGONOVINE MALEATE 0.2 MG TAB PO PRN (08:00)
[2019-10-27] MEDS ORDERED: DIBUCAINE 1% OINTMENT 30GM TOP PRN (08:00)
[2019-10-27] MEDS: PRENATAL VITAMINS CHEWABLE TABLET PO SCH (09:00)
[2019-10-27 09:20] VITALS: BP 114/61
[2019-10-27] MEDS: IBUPROFEN 800 MG TAB PO PRN (16:46)
[2019-10-27 18:00] VITALS: BP 98/50
[2019-10-28 06:00] VITALS: BP 118/60
[2019-10-28] MEDS ORDERED: IBUP80TA PO (07:13)
[2019-10-28 08:10] VITALS: BP 118/60
[2019-10-28] MEDS: PRENATAL VITAMINS CHEWABLE TABLET PO SCH (08:26)
[2019-10-28] MEDS: IBUPROFEN 800 MG TAB PO PRN (09:30)
== END 2019-10-28 13:30 | disposition home or self-care (01) | DRG 560 ==
LOC: M LDO 02:20 → M LDI 05:29 → M OBS 09:17
PROVIDERS: ADMIT Obstetrics & Gynecology; ATTEND Obstetrics & Gynecology
PROC: 10E0XZZ Delivery of Products of Conception, External Approach (ICD-10-PCS; principal; 2019-10-27)
DX: O80 Encounter for full-term uncomplicated delivery (principal); Z3A.39 39 weeks gestation of pregnancy; Z37.0 Single live birth

== ENCOUNTER → 2020-08-31 | Outpatient (REF) | payer OTHER ==
[~2020-08-31] MED LIST changes: +IBUP80TA PO
== END ==
LOC: M PLALAB 11:47
PROVIDERS: ATTEND Obstetrics & Gynecology
DX: R11.0 Nausea (principal)

== ENCOUNTER → 2021-01-20 | Outpatient (CLI) | payer OTHER ==
[2021-01-20 12:58] LABS: HEMATOCRIT 42.2 % (36.0-47.0); HEMOGLOBIN 14.1 g/dl (12.0-15.5); MEAN CORPUSCULAR HEMOGLOBIN 29.8 pg (27.0-33.0); MEAN CORPUSCULAR HGB CONC 33.4 g/dl (32.0-36.5); MEAN CORPUSCULAR VOLUME 89.2 fl (80.0-96.0); PLATELET COUNT, AUTOMATED 328 10^3/uL (150-450); RED BLOOD COUNT 4.73 10^6/uL (4.00-5.40); WHITE BLOOD COUNT 8.9 10^3/uL (4.0-10.0)
[2021-01-20 14:21] LABS: HIV 1&2 SCREEN CENTAUR NEGATIVE (NEGATIVE)
[2021-01-20 14:58] LABS: GC DNA AMPLIFICATION NEGATIVE (NEGATIVE)
== END ==
LOC: M PLALAB 09:37
PROVIDERS: ATTEND Specialist
DX: Z34.81 Encounter for supervision of other normal pregnancy, first trimester (principal)

== ENCOUNTER → 2021-01-21 | Outpatient (CLI) | payer OTHER | LOC: M PLALAB 09:37 | PROVIDERS: ATTEND Specialist | DX: Z13.79 Encounter for other screening for genetic and chromosomal anomalies (principal) ==

== ENCOUNTER → 2021-03-17 | Outpatient (CLI) | payer OTHER ==
--- NOTE | 2021-03-17 13:33 | REP ---
INDICATION: ANATOMY. COMPARISON: None. TECHNIQUE: Real-time sonographic evaluation of the gravid uterus performed. FINDINGS: Estimated gestational age is19 weeks 0 days, EDC 08/11/2021. Today's measurements indicate appropriate growth. Presentation: Transverse Placenta anterior, grade 1, without evidence of placenta previa. heart rate is recorded at 135 beats per minute. Amniotic fluid is subjectively normal. Closed cervical length is measured at 4.1 cm. Biometry chart: BPD: 44 mm, 19 weeks 1 days, 55th percentile. HC: 163 mm, 19 weeks 0 days, 51st percentile AC: 137 mm, 19 weeks 1 days, 53rd percentile Femur length: 29 mm, 19 weeks 0 days, 49th percentile HC to AC ratio: 1.19, normal range 1.06-1.25. Estimated weight: 272g anatomy: Cranium: Grossly normal Lateral Ventricles/Choroid Plexus: Grossly normal Posterior Fossa/Cerebellum: Grossly normal Nose/lips/profile: Grossly normal Four chamber heart: Grossly normal Right ventricular outflow tract: Not well seen due to position Left ventricular outflow tract: Not well seen due to position Left-sided stomach: Grossly normal Kidneys: Grossly normal Bladder: Grossly normal Cord Insertion: Grossly normal 3 vessel cord: Grossly normal Spine: Not well seen due to position IMPRESSION: Viable single intrauterine gestation as above. <Electronically signed by Michael Flores > 03/17/21 0259
== END ==
LOC: M WHC 08:32
PROVIDERS: ATTEND Advanced Practice Midwife
DX: Z34.92 Encounter for supervision of normal pregnancy, unspecified, second trimester (principal)